=== PATIENT | male | born 1945 | race Caucasian/White ===

== ENCOUNTER 2024-01-08 21:22 | Inpatient (IN) | payer OTHER, SELFPAY ==
[2024-01-08] VITALS (12 sets, daily range): BP systolic 99–134; BP diastolic 48–67; BMI 32.0
[2024-01-08] MEDS: NSS 1000 IV ×3 (18:36→20:09)
[2024-01-08 18:42] LABS: % Basophils 0.1 % (0-2); % Eosinophils 0.7 % (0-6); % Immature Granulocytes 0.4 % (0-0.5); % Lymphocytes 20.8 % (20.5-51.1); % Monocytes 12.9 % (1.7-9.3); % Neutrophils 65.1 % (42.2-75.2); Absolute Eosinophils 0.1 10^3/uL (0-0.7); Absolute Lymphocytes 1.5 10^3/uL (1.2-3.4); Absolute Neutrophils 4.8 10^3/uL (1.4-6.5); Hematocrit 42.1 % (39.0-52.0); Hemoglobin 15.3 g/dL (13.0-18.0); Mean Corp Hgb Conc. 36.3 g/dL (33.0-37.0); Mean Corpuscular Hgb 31.4 pg (27.0-31.0); Mean Corpuscular Volume 86.4 fL (80.0-94.0); Mean Platelet Volume 11.6 fL (7.4-10.4); Nucleated Red Blood Cells % 0 % (-); Platelet Count 232 10^3/uL (130-400); Red Blood Cell Count 4.87 10^6/uL (4.70-6.10); Red Cell Dist. Width 14.3 % (11.5-14.5); White Blood Cell Count 7.4 10^3/uL (4.8-10.8)
[2024-01-08 19:00] LABS: COVID-19 Antigen Positive (Negative)
[2024-01-08 19:22] LABS: Calcium 9.3 mg/dl (8.4-10.2); Carbon Dioxide 7 mmol/L (22-30); Chloride 104 mmol/L (98-107); Estimated Creatinine Clearance 6 ml/min; Glucose 97 mg/dl (70-99); Sodium 133 mmol/L (135-145); eGFR 5.34
--- NOTE | 2024-01-08 19:33 | ED.GENMED ---
History of Present Illness
General
Chief Complaint: Cough
Source: patient and spouse
Exam Limitations: none
Time Seen by Provider: 01/08/24 17:49
Nursing documentation reviewed up to this point in time: agreed with
History of Present Illness
History of Present Illness:
pt adin 78 y/o M with h/o HTN, HLD, cabg
day 6 of covid symptoms
suspected avi wifew was also positive
vaccinated
initially sore throat, maybe mild cough but those symptoms iddn't last
he hasn't beeen eating/drinking and to seems very dehydrated
also some diarrhea, which he had a few episodes of each day, but he took an OTC antidiarrheal med which ehlped
he has not been vomiting
isn't sure why he isn't eating
he denies fever, chest pain, sob
seems generally weak
Past History
Past History
ED Past Medical History: CAD, HTN and Hypercholesterolemia
ED Past Surgical History: Cardiac (cabg)
Social History
Tobacco: Non-smoker
Alcohol: None
Drug: None
Personal:
Living: with family
Review of Systems
Review of Systems
Allergies reviewed?: Yes
All Other Systems: Not applicable
Phy Exam
Physical Exam
Physical Exam:
GENERAL: Alert , in no apparent distress, seems a little off, goofy
EYE: pupils equal and reactive
NECK: Supple
ENT: o/p clr, VERY DRY
CARDIAC: Regular rate and rhythm .
LUNGS: Clear breath sounds bilaterally, no acute respiratory distress, no wheezes/rales/rhonchi
ABDOMEN: Soft, without focal tenderness, no r/g, no cvat, normal bowel sounds
NEUROLOGICAL: Alert and oriented, no focal neuro deficits, moving all exremities
SKIN: Warm and dry, skin intact.
MUSCULOSKELETAL: No edema, well perfused. neg jeana's sign
PSYCH: seems a little off
Course
Orders/Labs/Results
Orders:
Orders
01/08/24 18:14
0.9% Sodium Chloride 1000 ml [Nss] 1,000 ml IV BOLUS
CR Chest - 2 Views Urgent
Comment:
Reason For Exam: dehydration, not eating, covid
01/08/24 18:36
Basic Metabolic Panel Urgent
Comment: BMP NO K
COVID-19 Antigen Urgent
Source: Nasal Swab
Complete Blood Count/With Diff Urgent
01/08/24 19:32
Electrocardiogram (*1) Urgent
Reason for Study: Other
Other Reason for Exam: renal failure
Bladder Scan- Treatment ONCE
EKG- Treatment ONCE
01/08/24 19:46
0.9% Sodium Chloride 1000 ml [Nss] 1,000 ml IV BOLUS
01/08/24 20:07
Comprehensive Metabolic Panel Urgent
Magnesium Urgent
01/08/24 20:09
0.9% Sodium Chloride 1000 ml [Nss] 1,000 ml IV BOLUS
01/08/24 20:31
Renal Only US [US Renal Only W/O Bladder] Routine
Comment:
Reason For Exam: ADINA
01/08/24 20:32
Body Fluid for Eosinophils Routine
Urinalysis Routine
Urine Creatinine Routine
Urine Sodium Routine
01/08/24 20:34
Dextrose 50%-Water [Dextrose 50% Syringe] 25 grams IV NOW STA
Insulin Human Regular [Novolin R] 10 units IV NOW STA
01/08/24 20:45
Sterile Water For Inj [Sterile Water For Injection 1000 ml] 1,000 ml Sodium Bicarbonate 150 meq IV 125 mls/hr
01/08/24 21:03
Admit/Transfer Patient As Directed
Co-Sign Provider:
Level of Care: Inpatient admission
Assign to:: ICU
Physician / Group: Josef
Diagnosis: Acute kidney failure
Reason for Hospitalization: Above
Expected length of stay greater than two midnights?: Yes
ELOS- Estimated Length of Stay in days: 2
I certify the patient meets the requirements for IP care: Yes
01/08/24 21:04
Code Status As Directed
Resuscitation Status: Full Code
01/08/24 21:20
Lactate Level [Lactic Acid] Routine
01/08/24 22:12
Senior Animator Consult Routine
Consulting Provider: Brenda Oakes
Was physician already notified: Yes
NEPHROLOGY CONSULT Routine
Consulting Provider: Virgil Villalobos
Was physician already notified: Yes
Urinalysis Routine
Urine Creatinine Routine
Urine Sodium Routine
Carson Catheter [Catheter- Indwelling] As Directed
Reason for insertion: I&O's Critical Care
Assess insertion reason daily.Remove if no longer applicable: Yes
Sequential Compression Device [Pneumatic Compression Sleeves] As Directed
Type: Knee high
DX Deep Vein Thrombosis Video Routine
01/08/24 23:24
BMP [Basic Metabolic Panel] Routine
01/09/24 Breakfast
Clear Liquid
At Your Request: Full Participation
CBC/With Diff [Complete Blood Count/With Diff] IN AM
CMP [Comprehensive Metabolic Panel] IN AM
Abnormal Lab Results
01/08/24 01/08/24
18:36 20:07
MCH 31.4 H pg
(27.0-31.0)
MPV 11.6 H fL
(7.4-10.4)
Absolute Monos (auto) 1.0 H 10^3/uL
(0.1-0.6)
Monocytes % 12.9 H %
(1.7-9.3)
Sodium 133 L mmol/L 132 L mmol/L
(135-145) (135-145)
Potassium 6.6 H* mmol/L
(3.5-5.1)
Carbon Dioxide 7 L* mmol/L 6 L* mmol/L
(22-30) (22-30)
BUN 131 H* mg/dl 128 H* mg/dl
(9-20) (9-20)
Creatinine 9.3 H* mg/dL 9.0 H* mg/dL
(0.7-1.3) (0.7-1.3)
Magnesium 1.4 L mg/dl
(1.6-2.3)
AST 73 H U/L
(17-59)
SARS-CoV-2 Antigen Positive A
(Negative)
01/08/24 18:36
01/08/24 20:07
Vital Signs
Initial and Last Documented VS:
Initial Vital Signs
Temp Pulse Resp BP Pulse Ox
97.8 F 77 22 99/48 96
01/08/24 17:16 01/08/24 17:16 01/08/24 17:16 01/08/24 17:16 01/08/24 17:16
Last Documented Vital Signs
Temp Pulse Resp BP Pulse Ox
99.9 F 86 27 102/50 94
01/08/24 23:00 01/08/24 22:04 01/08/24 22:04 01/08/24 21:00 01/08/24 22:42
MDM/Problems Addressed
Differential Diagnosis Includes:
dehydration, covid, pneumonia, ARF
MDM/Problems Addressed:
78 y/o M with cad
covid + 5 days
home test +
lost his appetite and can't get him to really eat or drink
borderline low bp
VERY DRY MOUTH
bladder scan 12 ml
no focal findings on exam otherwise
no resp distress
covid+
ARF seems prerenal, bum 131, cr 9
k 6.6
no ekg changes
d/w renal who was sin to see pt and ordered meds, recommended 3L NS
icu
*Critical Care Note
Total Time (30-74mins, 75-104mins- exclusive of procedures): Not Applicable
ED Attending Note
-
Portions of this chart may have been created with voice recognition software.� Occasional wrong word or��sound alike� substitutions may have occurred due to the inherent limitations of voice recognition software.
Discharge Plan
Departure
Patient Disposition: Admit
Date of Disposition: 01/08/24
Time of Disposition: 20:24
Admit to: IMU
Presentation/result/management discussed w/ accepting MD/DO: Hospitalist
Condition: Fair
Covid-19: Not Applicable
Discharge Problem:
Acute renal failure
Interventions
Interventions:
*General Assessment Last Done: 01/08/24 18:41
*Neglect/Abuse Screening Last Done: 01/08/24 17:19
ED- Fall Risk Assessment Last Done: 01/08/24 21:49
*Nursing Disposition Last Done: 01/08/24 21:49
ED- Pulmonary Assessment Last Done: 01/08/24 18:30
Discharge Date and Time
Discharge Date/Time: 01/08/24 21:51
[2024-01-08 19:43] LABS: Blood Urea Nitrogen 131 mg/dl (9-20)
--- NOTE | 2024-01-08 20:22 | W.CON.NEPH ---
Consultation
-
Date/Time Consultation Requested: January 08, 2024 8 PM
Date/Time Consultation Performed: January 08, 2024 8 PM
Requesting Provider: Dr. Bahena
Performing Provider: On
Reason for Consultation: ADINA
Medical History
-
Chief Complaint: Weakness
History of Present Illness:
This is a 78-year-old gentleman who has coronary disease with bypass grafting on antiplatelet therapy, he is followed by cardiology.. He has hypertension which is typically controlled on a multidrug regimen as well as reflux controlled with
Prilosec therapy. Recently his close family had contracted COVID. First his [id number] and then his and then him. For the last 6 days time he has lost his appetite his intake has been essentially nil. This includes all solids and liquids.
However, he did still try to take his medications including his lisinopril. He reports that his urine output also decreased. He did develop diarrhea with watery. He has been mostly bedbound has been slightly orthostatic. He is very weak. He
denies any other symptoms such as pain or nausea or vomiting or fevers. He has no shortness of breath.
Past Medical History
Coronary disease with bypass grafting, hypertension, hyperlipidemia, CKD 3A, tooth extraction, tonsillectomy
Social History
Tobacco: Former Smoker
Alcohol: Occasional
Family History
Family History: CAD
Allergies / Home Medications
Allergy/AdvReac Type Severity Reaction Status Date / Time
No Known Allergies Allergy Unverified 01/08/24 17:23
�Medication �Instructions �Recorded �Confirmed �Type
amlodipine 5 mg tablet 5 mg PO DAILY 01/08/24 01/08/24 History
aspirin 81 mg chewable tablet 81 mg PO DAILY 01/08/24 01/08/24 History
atorvastatin 40 mg tablet 40 mg PO DAILY 01/08/24 01/08/24 History
lisinopril 10 mg tablet 10 mg PO DAILY 01/08/24 01/08/24 History
metoprolol succinate 50 mg 50 mg PO BID 01/08/24 01/08/24 History
tablet,extended release 24 hr
omeprazole 20 mg tablet,delayed 20 mg PO DAILY 01/08/24 01/08/24 History
release
Review of Systems
-
Loss of appetite, fatigue, orthostasis, diarrhea
All other systems: Negative unless noted
Physical Exam
Vital Signs
Vital Signs
Temp Pulse Resp BP Pulse Ox
97.8 F 72 22 112/49 97
01/08/24 17:16 01/08/24 20:00 01/08/24 20:00 01/08/24 20:00 01/08/24 20:00
Lab Results
WBC 7.4 10^3/uL (4.8-10.8) 01/08/24 18:36
RBC 4.87 10^6/uL (4.70-6.10) 01/08/24 18:36
Hgb 15.3 g/dL (13.0-18.0) 01/08/24 18:36
Hct 42.1 % (39.0-52.0) 01/08/24 18:36
Plt Count 232 10^3/uL (130-400) 01/08/24 18:36
eGFR Cancelled 01/08/24 19:34
Physical Exam
Patient is awake alert oriented and in no distress. Mood and affect were pleasant, insight and judgment were good. Pupils are equal round and reactive to light, extraocular movements are intact, sclera were anicteric. Hearing was normal, ears and
nose are intact. Oropharynx was dry. Neck was supple with trachea midline and no thyromegaly. Heart was regular rate and rhythm without rubs. Lower extremities without edema. Lungs were clear to auscultation bilaterally and with normal excursion.
Abdomen was soft, nontender, with normal active bowel sounds, and no hepatosplenomegaly. Skin was without rash and with normal turgor.
Data Reviewed
-
Radiology: Image Personally Visualized and interpreted (Chest x-ray on January 08, 2024 by my reading shows no acute disease)
Medical Tests (Nuc Med, Echo etc): Image Personally Visualized and interpreted (EKG on January 08, 2024 by read shows normal sinus rhythm inferior Q) and Report Reviewed by me (Echocardiogram on November 19, 2021 shows ejection fraction 54%)
Labs: Labs Reviewed by me (WBC 7.4, hemoglobin 15.3, platelet 232, sodium 133, chloride 104, bicarbonate 7, BUN 131, creatinine 1.3, calcium 9.3; COVID-19 positive)
Old Records: Reviewed (On April 01, 2023 sodium 139, potassium 3.9, chloride 103, bicarb 21, BUN 20, creatinine 1.47, calcium 7.2, AST 44, ALT 28; on February 19, 2022 urinalysis with 2+ protein)
Assessment/Plan
-
Assessment
Acute kidney injury
Azotemia
Metabolic acidosis
Diarrhea
Hypertension, relative hypotension
Coronary artery disease/CABG
Reflux
CKD 3A, 1.47
Plan
Await repeat potassium, treat medically
3 L saline bolus
IV fluids with bicarbonate
Check urine studies
Postvoid residual 12 cc
Check renal ultrasound
Holding all outpatient medications
Discussed with patient and . There is certainly a risk for requiring dialysis they understand.
Critical care time spent 42 minutes
[2024-01-08 20:34] LABS: ALT (SGPT) 47 U/L (0-50); AST (SGOT) 73 U/L (17-59); Alkaline Phosphatase 42 U/L (38-126); Calcium 8.6 mg/dl (8.4-10.2); Carbon Dioxide 6 mmol/L (22-30); Chloride 107 mmol/L (98-107); Estimated Creatinine Clearance 6 ml/min; Glucose 91 mg/dl (70-99); Magnesium 1.4 mg/dl (1.6-2.3); Potassium 6.6 mmol/L (3.5-5.1); Sodium 132 mmol/L (135-145); Total Bilirubin 0.7 mg/dl (0.2-1.3); Total Protein 6.9 g/dl (6.3-8.2); eGFR 5.55
[2024-01-08] MEDS: NOVOLIN R 10 UNITS IV (20:41)
[2024-01-08 20:42] LABS: Blood Urea Nitrogen 128 mg/dl (9-20)
[2024-01-08] MEDS: DEXTROSE 50% SYRINGE 25 GRAMS IV (20:43)
--- NOTE | 2024-01-08 21:08 | HPS.HSE ---
Family Physician
-
Family Physician: Triston Kimball
Chief Complaint
-
Severe fatigue, low urine output
History of Present Illness
Patient is a 78 years old male with history of coronary artery disease, hypertension, dyslipidemia, chronic kidney disease stage IIIa with baseline creatinine 1.47 who contracted COVID about 5 days ago from family members. Patient complains with
severe fatigue and weakness over the last few days, low oral intake and frequent loose stools. Patient has been taking his medications including including antihypertensives with lisinopril. He noticed decreased urine output. Over the last few
days he mostly been bedbound due to dizziness possibly orthostasis.
Patient presents to the emergency room found to be hypotensive
Additional workup revealed severe acute kidney injury with hyperkalemia
Medical History
Past Medical History
Past Medical History: Reports CAD, HTN and Other (CKD stage III AA)
Past Surgical History: Reports None
Social History
Tobacco: Non-smoker
Alcohol: None
Personal:
Living: With Family
Employment: Retired
Family History
Family History: Not pertinent
Allergies / Home Medications
Allergies reflects when Allergies were last updated in [facility].
Home Medications with original date entered in [facility]
Allergy/Medication List:
Allergies
Allergy/AdvReac Type Severity Reaction Status Date / Time
No Known Allergies Allergy Unverified 01/08/24 17:23
Home Medications
amlodipine 5 mg tablet 5 mg PO DAILY 01/08/24
aspirin 81 mg chewable tablet 81 mg PO DAILY 01/08/24
atorvastatin 40 mg tablet 40 mg PO DAILY 01/08/24
lisinopril 10 mg tablet 10 mg PO DAILY 01/08/24
metoprolol succinate 50 mg tablet,extended release 24 hr 50 mg PO BID 01/08/24
omeprazole 20 mg tablet,delayed release 20 mg PO DAILY 01/08/24
Review of Systems
-
A 12 point ROS was completed and negative except as noted: Yes
Physical Exam
Vital Signs
Vital Signs
Temp Pulse Resp BP Pulse Ox
97.8 F 72 22 112/49 97
01/08/24 17:16 01/08/24 20:00 01/08/24 20:00 01/08/24 20:00 01/08/24 20:00
Physical Exam
General: Well Developed, Well Nourished and No Apparent Distress
HEENT: NormoCephalic, Moist mucous membranes and Atraumatic
Respiratory: Clear
Cardiac: S1/S2 and Regular Rhythm; No Murmur or Rub
GI: Soft, Non Tender, Non Distended and Normal Bowel Sounds; No Organomegaly
Rectal: Deferred by Provider
Musculoskeletal: No Clubbing, No Cyanosis and No Edema
Skin: No Rash
Neuro: Nonfocal/grossly intact
Laboratory Results
-
01/08/24 18:36
Laboratory Results
Lactic Acid Cancelled 01/08/24 20:31
Total Bilirubin 0.7 mg/dl (0.2-1.3) 01/08/24 20:07
AST 73 U/L (17-59) H 01/08/24 20:07
ALT 47 U/L (0-50) 01/08/24 20:07
Alkaline Phosphatase 42 U/L (38-126) 01/08/24 20:07
Impression/Plan
-
IMPRESSION:
Presentation with severe fatigue and weakness.
Acute kidney injury
Severe azotemia
Increased anion gap metabolic acidosis.
Hypotension on presentation.
Acute COVID-19 infection
Conditions prior to admission:
CAD.
History of CABG
Dyslipidemia.
Hypertension.
CKD stage IIIa with baseline creatinine 1.4.
GERD.
PLAN:
Critically ill
Admit to ICU.
Acute kidney injury on CKD stage IIIa with baseline creatinine 1.4.
Decreased urine output.
Postvoid residual in ED 12 cc.
Severe azotemia.
Metabolic acidosis likely secondary to GI losses as well as ADINA.
Transient hypotension responding to IV fluids
Severe hyperkalemia with no EKG changes treated with insulin and bicarbonate.
Continue aggressive IV fluid resuscitation with bicarbonate.
Hold antihypertensives including TALA inhibitor
Carson catheter.
Urine studies
Renal sonogram.
Follow BMP closely.
Nephrology consultation appreciated.
Acute COVID-19 infection
Stable respiratory status with almost no respiratory complaints.
Chest x-ray clear lung davey.
Vaccinated.
Continue close monitoring.
Continue isolation
Coronary artery disease status post CABG
Preadmission regimen including aspirin, metoprolol, statin.
Hypertension on amlodipine and lisinopril.
GERD
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
[2024-01-08] MEDS: SODIUM BICARBONATE 1150 MEQ IV (21:21)
[2024-01-08 21:34] LABS: Glucose - Point of Care 121 mg/dl (70-99)
[2024-01-08 22:02] LABS: Lactic Acid 1.3 mmol/L (0.7-2.0)
--- NOTE | 2024-01-08 22:45 | PTCARENOTE ---
Pt arrived from ED approx 2200.
Placed on novel respiratory precautions, settled into ICU room.
No neurological deficits noted.
Normotensive, normothermic, NSR w/o ectopy.
Lungs diminished/coarse bilaterally, RA sp02 94-96%.
Anuric, failed alexis placement w/ coude.
Trending BMP, I/O, cardiac monitoring due to elevated K.
Family updated bedside at length, potential plans for HD.
[2024-01-08] MEDS: MAGNESIUM SULFATE 50 IV (23:31)
[2024-01-08 23:46] LABS: INR 1.08; PT 13.9 Sec (11.4-14.6)
[2024-01-08 23:47] LABS: APTT 35.6 Sec (23.4-35.0)
[2024-01-08 23:53] LABS: Blood Urea Nitrogen 115 mg/dl (9-20); Calcium 7.9 mg/dl (8.4-10.2); Carbon Dioxide 8 mmol/L (22-30); Chloride 112 mmol/L (98-107); Estimated Creatinine Clearance 7 ml/min; Glucose 73 mg/dl (70-99); Potassium 5.3 mmol/L (3.5-5.1); Sodium 135 mmol/L (135-145); eGFR 6.59
[2024-01-09] VITALS (32 sets, daily range): BP systolic 96–140; BP diastolic 49–111; PULSE 88–90; O2SAT 94–95; BMI 37.8
--- NOTE | 2024-01-09 00:53 | PTCARENOTE ---
No change from prior assessment.
Labs improving will cont. to trend, troponin and CK added on. VBG added to morning labs.
Still anuric.
mag rplt.
[2024-01-09 02:03] LABS: Creatine Phosphokinase 433 U/L (55-170)
[2024-01-09 02:04] LABS: Troponin I < 0.012 ng/ml
[2024-01-09 03:24] LABS: Urine Albumin Negative (Neg - Trace); Urine Bilirubin Negative (Negative); Urine Character Clear (Clear); Urine Color Yellow; Urine Glucose Negative (Negative); Urine Ketone Negative (Negative); Urine Leukocyte Negative (Negative); Urine Nitrite Negative (Negative); Urine Occult Blood 1+ (Negative); Urine Specific Gravity 1.015 (<1.030); Urine Urobilinogen Negative (Neg - 1+)
[2024-01-09 03:45] LABS: Urine Bacteria Moderate (Negative); Urine Red Blood Cell 50-60 /HPF (0-2); Urine Sodium 64 mmol/L (30-90)
[2024-01-09 03:46] LABS: Urine White Cell 40-50 /HPF (0-5)
[2024-01-09 03:48] LABS: Urine Amorphous Seen; Urine Urothelial Cell 0-2 /LPF (FEW)
--- NOTE | 2024-01-09 04:55 | PTCARENOTE ---
no deviation in assessment from prior.
remains on bicard gtt.
now urinating.
[2024-01-09 05:10] LABS: Body Fluid for Eosinophils No Eosinophils seen
[2024-01-09 05:21] LABS: Venous Blood Gas HCO3 10.9 mmol/L (22-27); Venous Blood Gas O2 Sat % 99.1 %; Venous Blood Gas pCO2 26 mmHg (35-48); Venous Blood Gas pH 7.23 (7.32-7.43); Venous Blood Gas pO2 135 mmHg (30-50)
[2024-01-09 05:28] LABS: % Basophils 0.5 % (0-2); % Immature Granulocytes 0.7 % (0-0.5); % Lymphocytes 27.7 % (20.5-51.1); % Neutrophils 58.1 % (42.2-75.2); Absolute Eosinophils 0.1 10^3/uL (0-0.7); Absolute Lymphocytes 1.6 10^3/uL (1.2-3.4); Absolute Monocytes 0.7 10^3/uL (0.1-0.6); Absolute Neutrophils 3.4 10^3/uL (1.4-6.5); Hemoglobin 13.2 g/dL (13.0-18.0); Mean Corp Hgb Conc. 35.7 g/dL (33.0-37.0); Mean Corpuscular Hgb 31.6 pg (27.0-31.0); Mean Corpuscular Volume 88.5 fL (80.0-94.0); Mean Platelet Volume 11.7 fL (7.4-10.4); Nucleated Red Blood Cells % 0 % (-); Platelet Count 168 10^3/uL (130-400); Red Blood Cell Count 4.18 10^6/uL (4.70-6.10); White Blood Cell Count 5.9 10^3/uL (4.8-10.8)
[2024-01-09] MEDS: SODIUM BICARBONATE 1150 MEQ IV ×2 (05:35→16:21)
[2024-01-09 06:03] LABS: ALT (SGPT) 39 U/L (0-50); AST (SGOT) 63 U/L (17-59); Albumin 3.6 g/dl (3.5-5.0); Alkaline Phosphatase 52 U/L (38-126); Blood Urea Nitrogen 110 mg/dl (9-20); Calcium 7.9 mg/dl (8.4-10.2); Carbon Dioxide 7 mmol/L (22-30); Chloride 108 mmol/L (98-107); Creatine Phosphokinase 558 U/L (55-170); Estimated Creatinine Clearance 9 ml/min; Glucose 72 mg/dl (70-99); Magnesium 1.9 mg/dl (1.6-2.3); Phosphorus 6.2 mg/dl (2.5-4.5); Potassium 4.9 mmol/L (3.5-5.1); Sodium 133 mmol/L (135-145); Total Bilirubin 0.6 mg/dl (0.2-1.3); Total Protein 6.2 g/dl (6.3-8.2); eGFR 8.05
--- NOTE | 2024-01-09 07:11 | CON.INTV ---
Consultation
Consultation Request
Date/Time Consultation Requested: 01/09/24
Date/Time Consultation Performed: 01/09/24
Performing Provider: Violette
Reason for Consultation: Critical Care
Medical History
-
History of Present Illness:
Patient is a 78 years old male with history of coronary artery disease, hypertension, dyslipidemia, chronic kidney disease stage IIIa with baseline creatinine 1.47 who contracted COVID about 5 days ago from family members. Patient complains with
severe fatigue and weakness over the last few days, low oral intake and frequent loose stools. He noticed decreased urine output. Over the last few days he mostly been bedbound due to dizziness possibly orthostasis. Patient presents to the
emergency room found to be hypotensive, with severe acute kidney injury (peak creat notably 9.3) with hyperkalemia (6.6), severe metabolic acidosis (bicarb 7).
Admitted to ICU for severe metabolic derangements.
Past Medical History
Past Medical History: Other (see below)
Social History
Tobacco: Non-smoker
Alcohol: None
Drug: None
Family History
Family History: Reviewed & Not Pertinent
Allergies / Home Medications
Allergies
Allergy/AdvReac Type Severity Reaction Status Date / Time
No Known Allergies Allergy Unverified 01/08/24 17:23
Home Medications
�Medication �Instructions �Recorded �Confirmed �Last Taken �Type
amlodipine 5 mg tablet 5 mg PO DAILY 01/08/24 01/08/24 Unknown History
aspirin 81 mg chewable tablet 81 mg PO DAILY 01/08/24 01/08/24 Unknown History
atorvastatin 40 mg tablet 40 mg PO DAILY 01/08/24 01/08/24 Unknown History
lisinopril 10 mg tablet 10 mg PO DAILY 01/08/24 01/08/24 Unknown History
metoprolol succinate 50 mg 50 mg PO BID 01/08/24 01/08/24 Unknown History
tablet,extended release 24 hr
omeprazole 20 mg tablet,delayed 20 mg PO DAILY 07/13/24 07/13/24 Unknown History
release
Review of Systems
-
History Source: Patient
All other systems: Negative unless noted
Vitals / Labs / Diagnostic Testing
Vital Signs
Temp Pulse Resp BP Pulse Ox
98.0 F 81 22 137/55 95
01/09/24 03:00 01/09/24 05:15 01/09/24 05:15 01/09/24 05:15 01/09/24 05:15
Lab Data
01/09/24 05:07
01/09/24 05:07
Laboratory Results
01/08/24
23:24
PT 13.9
INR 1.08
APTT 35.6 H
Diagnostic Testing:
Physical Exam
-
HEENT: Normocephalic, Anicteric and Moist Mucous Membranes
Cardiovascular: S1/S2 and Regular Rhythm
Respiratory: Clear and Non-Labored Respirations
GI: Soft, Non Distended and Non Tender
Neurology: Awake, Alert, Oriented, AO x 3 and No Motor Deficits
Skin: Warm, Dry and Good Color
General: Comfortable and Other (NAD)
Assessment
-
Patient is a 78 years old male with history of coronary artery disease, hypertension, dyslipidemia, chronic kidney disease stage IIIa with baseline creatinine 1.47 who contracted COVID about 5 days ago from family members. Patient complains with
severe fatigue and weakness over the last few days, low oral intake, frequent loose stools and decreased urine output. Over the last few days he mostly been bedbound due to dizziness possibly orthostasis. Patient presents to the emergency room
found to be hypotensive, with severe acute kidney injury (peak creat notably 9.3) with hyperkalemia (6.6), severe metabolic acidosis (bicarb 7). Admitted to ICU for severe metabolic derangements.
ADINA
Hyperkalemia
Severe met acidosis
Acute dehydration
Acute COVID illness
Weakness
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
Mixed hyperlipidemia
History of coronary artery bypass surgery 2005
Essential (primary) hypertension
Tonsillectomy
Plan
No current signs of metabolic encephalopathy or MS changes/following commands
Denies pain at this time.
Pain/sedation: PRN
RASS goals: 0
Hemodynamically stable, not requiring pressors.
Cardiac history reviewed--HTN, CAD
Prior ECHO reviewed indicating normal function
Resume home meds
Monitor on telemetry
Oxygen needs: stable on RA
Prior history of lung disease: none, but suspect BIBIANA
Supplemental O2 as indicated to maintain sats > 89%
CXR/CT reviewed indicating NAD
Diet resumed
Aspiration precautions, HOB > 30 degrees
Speech therapy eval can be considered if at elevated risk
Resume home PPI
ADINA present, renal following
Continue IVFs, repeat labs q12
Likely from prerenal/dehydration
CKD history
Void trials
Follow urine output, critical I/Os
Replete electrolytes as needed, consider bicarb repletion
No signs/symptoms suspicious for infectious etiology at this time
Observe off antibiotics for now
Follow fever trend, WBC count
CBC stable, no signs of bleeding or coagulopathy.
DVT prophylaxis as assessed based on risk, including mechanical SCDs
Can transfuse if indicated for Hb <7, plt < 10
INR WNL
PT/OT evals, OOB
No prior h/o diabetes or thyroid disease
Monitor accuchecks PRN/SS coverage if needed
Can transfer out of ICU when stable, we will sign off upon transfer
Discussed CDC recs for COVID management as OP
Diagnostic Data
Chest X-Ray: 01/08/24- No acute cardiopulmonary process.
CT Scan:
Echo: 11/19/21- Normal left ventricular size and systolic function. No regional wall motion abnormalities are seen. LV ejection fraction is 54% by Arana's biplane method of discs. Mild septal hypertrophy. Normal diastolic function.
PFT's:
Reports and relevant images were personally reviewed.
-----
Critical Care time 60 mins -- The patient is admitted for acute critical illness for the treatment of vital organ failure and/or prevention of further life-threatening conditions. Total care includes time spent in review of history, physical exam,
medications, hemodynamic/ventilator parameters, laboratory data, imaging and discussion with house staff, pharmacy, respiratory therapy, immigration law specialist, and nursing.
[2024-01-09 07:42] LABS: Erythrocyte Sed Rate 26 mm/hour (0-20)
--- NOTE | 2024-01-09 08:00 | W.PN.NEPH.PH ---
Today's Communication / Plan
-
Continue IV fluids
Assessment/Plan
-
Assessment
Acute kidney injury
Azotemia
Metabolic acidosis
Diarrhea
Hypertension, relative hypotension
Coronary artery disease/CABG
Reflux
CKD 3A, 1.47
Plan
Continue IV fluids with bicarbonate
Follow urine output
Await renal ultrasound
Holding all outpatient medications
Acidosis is likely on the basis of acute kidney injury and diarrhea
Critical care time spent 31 minutes
-
-
Date of Service: January 09, 2024
CC / HPI / ROS
-
Chief Complaint:
ADINA
History of Present Illness:
ADINA/creatinine down to 6.6
Significant metabolic acidosis persists, 7
Hyponatremia stable 133
Urine output slowly improving
BP stable
Remains in COVID isolation
Critically ill in ICU
Review of Systems:
Appetite slowly improving
No further diarrhea
No chest pain shortness of breath
Labs
-
Labs:
WBC 5.9 10^3/uL (4.8-10.8) 01/09/24 05:07
RBC 4.18 10^6/uL (4.70-6.10) L 01/09/24 05:07
Hgb 13.2 g/dL (13.0-18.0) 01/09/24 05:07
Hct 37.0 % (39.0-52.0) L 01/09/24 05:07
Plt Count 168 10^3/uL (130-400) D 01/09/24 05:07
Sodium 133 mmol/L (135-145) L 01/09/24 05:07
Potassium 4.9 mmol/L (3.5-5.1) 01/09/24 05:07
Chloride 108 mmol/L (98-107) H 01/09/24 05:07
Carbon Dioxide 7 mmol/L (22-30) L* 01/09/24 05:07
BUN 110 mg/dl (9-20) H* 01/09/24 05:07
Creatinine 6.6 mg/dL (0.7-1.3) H* 01/09/24 05:07
eGFR 8.05 01/09/24 05:07
Glucose 72 mg/dl (70-99) 01/09/24 05:07
Calcium 7.9 mg/dl (8.4-10.2) L 01/09/24 05:07
Phosphorus 6.2 mg/dl (2.5-4.5) H 01/09/24 05:07
Albumin 3.6 g/dl (3.5-5.0) 01/09/24 05:07
Physical Exam
-
Vital Signs:
Vital Signs
Temp Pulse Resp BP Pulse Ox
98.6 F 81 22 137/55 95
01/09/24 07:27 01/09/24 05:15 01/09/24 05:15 01/09/24 05:15 01/09/24 05:15
Cardiovascular:: Regular rate and rhythm
Respiratory:: Bilateral: Coarse
Lung Excursion:: Normal
Abdomen:: Nontender and Soft
Bowel Sounds:: Normal
Extremity Edema:: None: Bilateral:
--- NOTE | 2024-01-09 08:08 | W.PN.HOSP.TC ---
Today's Communication/Plan
-
transfer to tele
PT/OT
follow labs
Assessment / Plan
Assessment / Plan
pt is a 78 year old male
Acute kidney injury ( with metabolic acidosis) on CKD stage IIIa with baseline creatinine 1.4--likely from poor oral intake, dehydration, diarrhea all from Covid 19 infection--apprec renal--cont IVF with bicarb--numbers improving but not at
baseline--transfer to tele--Severe hyperkalemia with no EKG changes treated with insulin and bicarbonate--Hold antihypertensives including TALA inhibitor--Carson catheter--apprec renal--renal US pending
Acute COVID-19 infection--Stable respiratory status with almost no respiratory complaints--CXR neg--not hypoxic--NO NEED for COVID therapies--Vaccinated-- isolation as per protocol
Coronary artery disease status post CABG--Preadmission regimen including aspirin, metoprolol, statin.
Essential Hypertension-- holding amlodipine and lisinopril.
GERD--cont PPO
code status -- FULL CODE
Anticipated Discharge: > 48 hours
Subjective/Interval History
-
Date of Service: January 09, 2024
pt sitting in the chair--started making urine
Objective Data
-
Labs:
Laboratory Results
01/08/24 01/08/24 01/09/24
20:07 23:24 05:07
WBC 5.9
Hgb 13.2
Hct 37.0 L
Plt Count 168 D
PT 13.9
INR 1.08
APTT 35.6 H
Sodium 132 L 135 133 L
Potassium 6.6 H* 5.3 H 4.9
Chloride 107 112 H 108 H
Carbon Dioxide 6 L* 8 L* 7 L*
BUN 128 H* 115 H* 110 H*
Creatinine 9.0 H* 7.8 H* 6.6 H*
Glucose 91 73 72
Calcium 8.6 7.9 L 7.9 L
Total Bilirubin 0.7 0.6
AST 73 H 63 H
ALT 47 39
Alkaline Phosphatase 42 52
Vital Signs:
max temp for 24 hours
01/08/24
23:00
Temp 99.9 F
Vital Signs
Temp Pulse Resp BP Pulse Ox
98.6 F 81 22 137/55 95
01/09/24 07:27 01/09/24 05:15 01/09/24 05:15 01/09/24 05:15 01/09/24 05:15
I&O
01/08/24 01/09/24 01/10/24
06:59 06:59 06:59
Intake Total 3825 / 3825
Output Total 600 / 600
Balance 3225 / 3225
Review of Systems
-
All other systems: Reviewed and negative
Physical Exam
-
General: Well Developed, Well Nourished and No Apparent Distress
HEENT: Normocephalic and Atraumatic
Respiratory: Clear to Auscultation; Negative Wheezes or Rhonchi
Cardiac: Regular Rhythm and S1/S2; Negative Murmur
GI: Soft, Nontender, Nondistended and Normal Bowel Sounds
Musculoskeletal: No Clubbing, No Cyanosis and No Edema
Neuro: Awake and Alert
Psych: Calm
--- NOTE | 2024-01-09 12:59 | PTCARENOTE ---
Pt transferred to acute care room 2127. Care assumed by GEORGI Magaña.
--- NOTE | 2024-01-09 22:44 | PTCARENOTE ---
Hr increased to 150's sinus tach when ambulating. pt asymptomatic. HR back to roxanne in 80's when in bed. [employer] notified. no new orders. will monitor.
[2024-01-10 03:26] VITALS: BP 130/63
[2024-01-10] MEDS: SODIUM BICARBONATE 1150 MEQ IV (05:18)
[2024-01-10 05:36] VITALS: BMI 35.7
[2024-01-10 07:15] VITALS: BP 112/68
[2024-01-10 07:32] LABS: Hematocrit 35.6 % (39.0-52.0); Hemoglobin 13.2 g/dL (13.0-18.0); Mean Corp Hgb Conc. 37.1 g/dL (33.0-37.0); Mean Corpuscular Volume 83.6 fL (80.0-94.0); Mean Platelet Volume 10.9 fL (7.4-10.4); Platelet Count 181 10^3/uL (130-400); Red Blood Cell Count 4.26 10^6/uL (4.70-6.10); Red Cell Dist. Width 13.4 % (11.5-14.5); White Blood Cell Count 4.1 10^3/uL (4.8-10.8)
[2024-01-10 08:10] LABS: ALT (SGPT) 40 U/L (0-50); AST (SGOT) 78 U/L (17-59); Albumin 3.7 g/dl (3.5-5.0); Alkaline Phosphatase 56 U/L (38-126); Blood Urea Nitrogen 93 mg/dl (9-20); Calcium 8.3 mg/dl (8.4-10.2); Carbon Dioxide 22 mmol/L (22-30); Chloride 105 mmol/L (98-107); Estimated Creatinine Clearance 20 ml/min; Glucose 91 mg/dl (70-99); Magnesium 1.4 mg/dl (1.6-2.3); Potassium 4.6 mmol/L (3.5-5.1); Sodium 139 mmol/L (135-145); Total Bilirubin 0.8 mg/dl (0.2-1.3); Total Protein 6.3 g/dl (6.3-8.2); eGFR 20.74
[2024-01-10] MEDS: MAGNESIUM SULFATE 50 IV (09:42)
[2024-01-10] MEDS: LOPRESSOR 25 MG PO ×2 (09:52→19:26)
[2024-01-10] MEDS: LOPRESSOR 5 MG IV (10:02)
[2024-01-10 11:10] VITALS: BP 101/53
--- NOTE | 2024-01-10 11:39 | W.PN.HOSP.TC ---
Addendum entered and electronically signed by Jesus Herrera MD 01/10/24 11:45:
Hypomagnesemia
Replete and monitor
Original Note:
Today's Communication/Plan
-
Trend creatinine
Restart Lopressor
Monitor blood pressure
Nephrology recommendation
Assessment / Plan
Assessment / Plan
pt is a 78 year old male
Acute kidney injury ( with metabolic acidosis) on CKD stage IIIa with baseline creatinine 1.4--likely from poor oral intake, dehydration, diarrhea all from Covid 19 infection--apprec renal--cont IVF with bicarb--numbers improving but not at
baseline--Carson catheter--apprec renal--renal US negative for hydro. Creatinine improving to 3 today.
Severe hyperkalemia with no EKG changes treated with insulin and bicarbonate--Hold TALA inhibitor. Resolved.
Tachycardia likely sinus. Restart Lopressor at a lower dose and uptitrate as blood pressure can tolerate it to home dose
Acute COVID-19 infection--Stable respiratory status with almost no respiratory complaints--CXR neg--not hypoxic--Hold off for COVID therapies--Vaccinated-- isolation as per protocol.
Coronary artery disease status post CABG--RESTART aspirin, metoprolol, statin.
Essential Hypertension-- holding amlodipine and lisinopril.
GERD--cont PPO
code status -- FULL CODE
PT/OT Home health on discharge
Anticipated Discharge: 24 - 48 hours
Subjective/Interval History
-
Date of Service: January 10, 2024
states feeling better
tolerating diet
was tachycardiac earlier today
Objective Data
-
Labs:
Laboratory Results
01/10/24 01/10/24
07:18 07:19
WBC 4.1 L
Hgb 13.2
Hct 35.6 L
Plt Count 181
Sodium 139
Potassium 4.6
Chloride 105
Carbon Dioxide 22
BUN 93 H
Creatinine 3.0 H
Glucose 91
Calcium 8.3 L
Total Bilirubin 0.8
AST 78 H
ALT 40
Alkaline Phosphatase 56
Vital Signs:
Vital Signs
Temp Pulse Resp BP Pulse Ox
98.7 F 180 18 103/58 100
01/10/24 03:26 01/10/24 10:02 01/10/24 07:15 01/10/24 10:02 01/10/24 07:15
I&O
01/09/24 01/10/24 01/11/24
06:59 06:59 06:59
Intake Total 3825 / 3825 1180 / 1180
Output Total 600 / 600 650 / 650
Balance 3225 / 3225 530 / 530
Physical Exam
-
General: Well Developed, Well Nourished and No Apparent Distress
HEENT: Normocephalic and Atraumatic
Respiratory: Clear to Auscultation; Negative Wheezes or Rhonchi
Cardiac: Regular Rhythm and S1/S2; Negative Murmur
GI: Soft, Nontender, Nondistended and Normal Bowel Sounds
Musculoskeletal: No Clubbing, No Cyanosis and No Edema
Neuro: Awake and Alert
Psych: Calm
Data Reviewed
-
Total Time Spent with Patient (in minutes): 55
--- NOTE | 2024-01-10 11:46 | W.PN.NEPH.PH ---
Today's Communication / Plan
-
- change to LR
Assessment/Plan
-
Assessment
Acute kidney injury
Azotemia
Metabolic acidosis
Diarrhea
Hypertension, relative hypotension
Coronary artery disease/CABG
Reflux
CKD 3A, 1.47
Plan
Change fluids from bicarb to LR
Follow urine output, not accurate currently
KUS with a L renal cyst but otherwise benign
Holding all outpatient medications
acidosis significantly improved with bicarb -- likely from intake and diarrhea
Mg low -- please replete
-
-
Date of Service: January 10, 2024
CC / HPI / ROS
-
Chief Complaint:
ADINA
History of Present Illness:
ADINA/creatinine down to 3
Significant metabolic acidosis improved with bicarb gtt
Hyponatremia normalized to 139 with fluids
Urine output slowly improving
BP stable
COVID +
Review of Systems:
Appetite slowly improving
No further diarrhea
No chest pain shortness of breath
Labs
-
Labs:
WBC 4.1 10^3/uL (4.8-10.8) L 01/10/24 07:18
RBC 4.26 10^6/uL (4.70-6.10) L 01/10/24 07:18
Hgb 13.2 g/dL (13.0-18.0) 01/10/24 07:18
Hct 35.6 % (39.0-52.0) L 01/10/24 07:18
Plt Count 181 10^3/uL (130-400) 01/10/24 07:18
Sodium 139 mmol/L (135-145) 01/10/24 07:19
Potassium 4.6 mmol/L (3.5-5.1) 01/10/24 07:19
Chloride 105 mmol/L (98-107) 01/10/24 07:19
Carbon Dioxide 22 mmol/L (22-30) 01/10/24 07:19
BUN 93 mg/dl (9-20) H 01/10/24 07:19
Creatinine 3.0 mg/dL (0.7-1.3) H 01/10/24 07:19
eGFR 20.74 01/10/24 07:19
Glucose 91 mg/dl (70-99) 01/10/24 07:19
Calcium 8.3 mg/dl (8.4-10.2) L 01/10/24 07:19
Phosphorus 6.2 mg/dl (2.5-4.5) H 01/09/24 05:07
Albumin 3.7 g/dl (3.5-5.0) 01/10/24 07:19
Physical Exam
-
Vital Signs:
Vital Signs
Temp Pulse Resp BP Pulse Ox
98.7 F 180 18 103/58 100
01/10/24 03:26 01/10/24 10:02 01/10/24 07:15 01/10/24 10:02 01/10/24 07:15
Cardiovascular:: Regular rate and rhythm
Respiratory:: Bilateral: CTA
Lung Excursion:: Normal
Abdomen:: Nontender and Soft
Bowel Sounds:: Normal
Extremity Edema:: None: Bilateral:
Carson Catheter: No
[2024-01-10] MEDS: LR 1000 IV (13:15)
[2024-01-10 16:23] VITALS: BP 105/46
[2024-01-10 19:08] VITALS: BP 121/63
[2024-01-10 23:16] VITALS: BP 127/69
[2024-01-11] VITALS (7 sets, daily range): BP systolic 122–144; BP diastolic 47–74
[2024-01-11] MEDS: LR 1000 IV (01:17)
[2024-01-11 06:34] LABS: Blood Urea Nitrogen 62 mg/dl (9-20); Calcium 8.6 mg/dl (8.4-10.2); Carbon Dioxide 25 mmol/L (22-30); Chloride 105 mmol/L (98-107); Estimated Creatinine Clearance 28 ml/min; Glucose 93 mg/dl (70-99); Sodium 140 mmol/L (135-145); eGFR 31.82
[2024-01-11] MEDS: PROTONIX 40 MG PO (07:41)
[2024-01-11] MEDS: LOW STRENGTH ASPIRIN 81 MG PO (07:41)
[2024-01-11] MEDS: LIPITOR 40 MG PO (07:41)
[2024-01-11] MEDS: LOPRESSOR 25 MG PO ×2 (07:51→20:56)
--- NOTE | 2024-01-11 11:42 | W.PN.HOSP.TC ---
Today's Communication/Plan
-
IVF
trend cr
nephro recs
Assessment / Plan
Assessment / Plan
pt is a 78 year old male
Acute kidney injury ( with metabolic acidosis) on CKD stage IIIa with baseline creatinine 1.4--likely from poor oral intake, dehydration, diarrhea all from Covid 19 infection--apprec renal--cont IVF with bicarb--numbers improving but not at
baseline--Carson catheter--apprec renal--renal US negative for hydro. Creatinine improving to 2.1. On IVF per nephro.
Severe hyperkalemia with no EKG changes treated with insulin and bicarbonate--Hold TALA inhibitor. Resolved.
Tachycardia likely sinus. Restart Lopressor at a lower dose and uptitrate as blood pressure can tolerate it to home dose
Acute COVID-19 infection--Stable respiratory status with almost no respiratory complaints--CXR neg--not hypoxic--Hold off for COVID therapies--Vaccinated-- isolation as per protocol.
Coronary artery disease status post CABG--RESTART aspirin, metoprolol, statin.
Essential Hypertension-- holding amlodipine and lisinopril.
GERD--cont PPO
code status -- FULL CODE
PT/OT Home health on discharge
d/w with daughter at bedside in details
Anticipated Discharge: Within 24 hours
Subjective/Interval History
-
Date of Service: January 11, 2024
remains weak
tolerating diet
Objective Data
-
Labs:
Laboratory Results
01/11/24
05:11
Sodium 140
Potassium 5.0
Chloride 105
Carbon Dioxide 25
BUN 62 H
Creatinine 2.1 H
Glucose 93
Calcium 8.6
Vital Signs:
Vital Signs
Temp Pulse Resp BP Pulse Ox
97.7 F 82 16 133/66 96
01/11/24 07:50 01/11/24 07:51 01/11/24 07:50 01/11/24 07:51 01/11/24 08:00
I&O
01/10/24 01/11/24 01/12/24
06:59 06:59 06:59
Intake Total 1180 / 1180 2400 / 2400
Output Total 650 / 650
Balance 530 / 530 2400 / 2400
Physical Exam
-
General: Well Developed, Well Nourished and No Apparent Distress
HEENT: Normocephalic and Atraumatic
Respiratory: Clear to Auscultation; Negative Wheezes or Rhonchi
Cardiac: Regular Rhythm and S1/S2; Negative Murmur
GI: Soft, Nontender, Nondistended and Normal Bowel Sounds
Musculoskeletal: No Clubbing, No Cyanosis and No Edema
Neuro: Awake and Alert
Psych: Calm
--- NOTE | 2024-01-11 12:38 | W.PN.NEPH.PH ---
Today's Communication / Plan
-
- off fluids
- encourage PO intake
Assessment/Plan
-
Assessment
Acute kidney injury
Azotemia
Metabolic acidosis
Diarrhea
Hypertension, relative hypotension
Coronary artery disease/CABG
Reflux
CKD 3A, 1.47
Plan
trial off fluids today
Follow urine output, not accurate currently
KUS with a L renal cyst but otherwise benign
Holding all outpatient medications
acidosis significantly improved with bicarb -- likely from intake and diarrhea
Mg low -- please replete
-
-
Date of Service: January 11, 2024
CC / HPI / ROS
-
Chief Complaint:
ADINA
History of Present Illness:
ADINA/creatinine down to 2.1 (bl 1.4)
Significant metabolic acidosis improved with bicarb gtt
Hyponatremia normalized to 140 with fluids
Urine output slowly improving
BP stable
COVID +
Review of Systems:
Appetite slowly improving
No further diarrhea
No chest pain shortness of breath
Labs
-
Labs:
WBC 4.1 10^3/uL (4.8-10.8) L 01/10/24 07:18
RBC 4.26 10^6/uL (4.70-6.10) L 01/10/24 07:18
Hgb 13.2 g/dL (13.0-18.0) 01/10/24 07:18
Hct 35.6 % (39.0-52.0) L 01/10/24 07:18
Plt Count 181 10^3/uL (130-400) 01/10/24 07:18
Sodium 140 mmol/L (135-145) 01/11/24 05:11
Potassium 5.0 mmol/L (3.5-5.1) 01/11/24 05:11
Chloride 105 mmol/L (98-107) 01/11/24 05:11
Carbon Dioxide 25 mmol/L (22-30) 01/11/24 05:11
BUN 62 mg/dl (9-20) H 01/11/24 05:11
Creatinine 2.1 mg/dL (0.7-1.3) H 01/11/24 05:11
eGFR 31.82 01/11/24 05:11
Glucose 93 mg/dl (70-99) 01/11/24 05:11
Calcium 8.6 mg/dl (8.4-10.2) 01/11/24 05:11
Phosphorus 6.2 mg/dl (2.5-4.5) H 01/09/24 05:07
Albumin 3.7 g/dl (3.5-5.0) 01/10/24 07:19
Physical Exam
-
Vital Signs:
Vital Signs
Temp Pulse Resp BP Pulse Ox
98.1 F 74 18 131/71 95
01/11/24 11:44 01/11/24 11:44 01/11/24 11:44 01/11/24 11:44 01/11/24 11:44
Cardiovascular:: Regular rate and rhythm
Respiratory:: Bilateral: Coarse
Lung Excursion:: Normal
Abdomen:: Nontender and Soft
Bowel Sounds:: Normal
Extremity Edema:: None: Bilateral:
Carson Catheter: No
--- NOTE | 2024-01-11 17:23 | CM ---
Patient with Covid. Left message for to complete assessment.
[2024-01-12] VITALS (7 sets, daily range): BP systolic 126–173; BP diastolic 67–88; PULSE 87; O2SAT 96; BMI 35.3
--- NOTE | 2024-01-12 04:19 | DOWNTIME ---
There was a [employer] Downtime on 01/12/2024 from 0100 to 01/12/2024 at 0255. Downtime documentation of patient's care, including medication administrations, has been reconciled in the electronic record per guidelines. Refer to the
patient's paper chart under the miscellaneous tab to see printed paper medication records and downtime forms.
[2024-01-12 07:13] LABS: Blood Urea Nitrogen 40 mg/dl (9-20); Carbon Dioxide 27 mmol/L (22-30); Chloride 104 mmol/L (98-107); Estimated Creatinine Clearance 33 ml/min; Glucose 95 mg/dl (70-99); Potassium 5.5 mmol/L (3.5-5.1); Sodium 137 mmol/L (135-145); eGFR 38.29
[2024-01-12] MEDS: LOW STRENGTH ASPIRIN 81 MG PO (07:51)
[2024-01-12] MEDS: LOPRESSOR 25 MG PO ×2 (07:51→21:06)
[2024-01-12] MEDS: LIPITOR 40 MG PO (07:51)
[2024-01-12] MEDS: PROTONIX 40 MG PO (07:51)
[2024-01-12] MEDS: VISBIOME 1 CAP PO (09:26)
--- NOTE | 2024-01-12 10:16 | W.PN.NEPH.PH ---
Today's Communication / Plan
-
check Mag
Assessment/Plan
-
Assessment
Acute kidney injury
Azotemia
Metabolic acidosis
Diarrhea
Hypertension, relative hypotension
Coronary artery disease/CABG
Reflux
CKD 3A, 1.47
Plan
follow BMP
check Mag
d/w family
-
-
Date of Service: January 12, 2024
CC / HPI / ROS
-
Chief Complaint:
ADINA
History of Present Illness:
ADINA/creatinine down to 1.8 (bl 1.4)
Significant metabolic acidosis improved
Urine output slowly improving
BP stable
COVID +
K up at 5.5
Review of Systems:
Appetite improving
No further diarrhea
No chest pain shortness of breath
Labs
-
Labs:
WBC 4.1 10^3/uL (4.8-10.8) L 01/10/24 07:18
RBC 4.26 10^6/uL (4.70-6.10) L 01/10/24 07:18
Hgb 13.2 g/dL (13.0-18.0) 01/10/24 07:18
Hct 35.6 % (39.0-52.0) L 01/10/24 07:18
Plt Count 181 10^3/uL (130-400) 01/10/24 07:18
Sodium 137 mmol/L (135-145) 01/12/24 05:42
Potassium 5.5 mmol/L (3.5-5.1) H 01/12/24 05:42
Chloride 104 mmol/L (98-107) 01/12/24 05:42
Carbon Dioxide 27 mmol/L (22-30) 01/12/24 05:42
BUN 40 mg/dl (9-20) H 01/12/24 05:42
Creatinine 1.8 mg/dL (0.7-1.3) H 01/12/24 05:42
eGFR 38.29 01/12/24 05:42
Glucose 95 mg/dl (70-99) 01/12/24 05:42
Calcium 9.0 mg/dl (8.4-10.2) 01/12/24 05:42
Phosphorus 6.2 mg/dl (2.5-4.5) H 01/09/24 05:07
Albumin 3.7 g/dl (3.5-5.0) 01/10/24 07:19
Physical Exam
-
Vital Signs:
Vital Signs
Temp Pulse Resp BP Pulse Ox
98.5 F 90 18 159/84 95
01/12/24 07:15 01/12/24 07:51 01/12/24 07:15 01/12/24 07:51 01/12/24 07:15
Cardiovascular:: Regular rate and rhythm
Respiratory:: Bilateral: Coarse
Lung Excursion:: Normal
Abdomen:: Nontender and Soft
Bowel Sounds:: Normal
Extremity Edema:: None: Bilateral:
[2024-01-12 11:49] LABS: Magnesium 1.4 mg/dl (1.6-2.3)
--- NOTE | 2024-01-12 12:55 | W.PN.HOSP.TC ---
Today's Communication/Plan
-
Replace magnesium and monitor electrolytes, possible discharge tomorrow
Assessment / Plan
Assessment / Plan
pt is a 78 year old male
Acute kidney injury ( with metabolic acidosis) on CKD stage IIIa with baseline creatinine 1.4--likely from poor oral intake, dehydration, diarrhea all from Covid 19 infection--apprec renal--cont IVF with bicarb--numbers improving but not at
baseline--Carson catheter--apprec renal--renal US negative for hydro. Creatinine improving to 2.1. On IVF per nephro.
Severe hyperkalemia with no EKG changes treated with insulin and bicarbonate--Hold TALA inhibitor. Resolved. Continue to monitor
Hypomagnesia: Replace and continue to monitor
Diarrhea: Possible secondary to COVID, added probiotic
Tachycardia likely sinus. Restart Lopressor at a lower dose and uptitrate as blood pressure can tolerate it to home dose
Acute COVID-19 infection--Stable respiratory status with almost no respiratory complaints--CXR neg--not hypoxic--Hold off for COVID therapies--Vaccinated-- isolation as per protocol.
Coronary artery disease status post CABG--RESTART aspirin, metoprolol, statin.
Essential Hypertension-- holding amlodipine and lisinopril.
GERD--cont PPO
code status -- FULL CODE
PT/OT Home health on discharge
d/w with daughter at bedside in details
Anticipated Discharge: Within 24 hours
Subjective/Interval History
-
Date of Service: January 12, 2024
Patient seen and examined at bedside, denies any chest pain or shortness of breath, no abdominal pain, no nausea, no vomiting, no diarrhea or constipation.
Family concerning of loose bowel, added probiotic.
Creatinine improved to 1.8, potassium 5.5.
Magnesium 1.4.
Objective Data
-
Labs:
Laboratory Results
01/12/24
05:42
Sodium 137
Potassium 5.5 H
Chloride 104
Carbon Dioxide 27
BUN 40 H
Creatinine 1.8 H
Glucose 95
Calcium 9.0
Vital Signs:
Vital Signs
Temp Pulse Resp BP Pulse Ox
98.3 F 76 18 133/71 94
01/12/24 11:10 01/12/24 11:10 01/12/24 11:10 01/12/24 11:10 01/12/24 11:10
I&O
01/11/24 01/12/24 01/13/24
06:59 06:59 06:59
Intake Total 2400 / 2400 1560 / 1560
Balance 2400 / 2400 1560 / 1560
Physical Exam
-
General: Well Developed and No Apparent Distress
HEENT: Normocephalic, Atraumatic and Moist Mucous Membranes
Respiratory: Clear to Auscultation
Cardiac: Regular Rhythm and S1/S2; Negative Murmur, Rub or Gallop
GI: Soft, Nontender, Nondistended and Normal Bowel Sounds; Negative Organomegaly
Rectal: Deferred by Provider
Musculoskeletal: No Clubbing, No Cyanosis and No Edema
Skin: Negative Rash
Neuro: Nonfocal/Grossly Intact
[2024-01-12] MEDS: MAGNESIUM SULFATE 102 GRAMS IV (13:56)
--- NOTE | 2024-01-12 15:31 | CM ---
Spoke with pt on the phone to complete initial assessment
Pt reports lives with his in a 2 story home. 4 steps to enter, 8 steps to bedroom
Independent, drives
DME - none
HH - no hx
SNF - no hx
Has ride at d/c
PCP - Dr Triston Kimball
Pharm - [facility]
PT recommending home PT vs no needs at d/c - pt unsure at this time
CM will follow for needs
Plan - anticipate home with HH vs no needs
[2024-01-13 03:04] VITALS: BP 128/58
[2024-01-13 06:00] VITALS: BMI 34.9
[2024-01-13 06:10] VITALS: BP 133/81
[2024-01-13 07:10] VITALS: BP 133/81
[2024-01-13 07:40] LABS: Blood Urea Nitrogen 29 mg/dl (9-20); Calcium 9.2 mg/dl (8.4-10.2); Carbon Dioxide 19 mmol/L (22-30); Chloride 105 mmol/L (98-107); Estimated Creatinine Clearance 35 ml/min; Glucose 99 mg/dl (70-99); Potassium 5.6 mmol/L (3.5-5.1); Sodium 137 mmol/L (135-145); eGFR 41.01
[2024-01-13 07:50] LABS: Magnesium 1.6 mg/dl (1.6-2.3)
[2024-01-13] MEDS: PROTONIX 40 MG PO (08:11)
[2024-01-13] MEDS: VISBIOME 1 CAP PO (08:11)
[2024-01-13] MEDS: LOPRESSOR 25 MG PO (08:11)
[2024-01-13] MEDS: LOW STRENGTH ASPIRIN 81 MG PO (08:11)
[2024-01-13] MEDS: LIPITOR 40 MG PO (08:12)
--- NOTE | 2024-01-13 10:23 | CM ---
CM following re:discharge planning.
Reviewed pt's chart, met with pt.
Discharge order noted. Both pt and his spouse are aware, expressed their agreement with discharge. IMM reviewed, placed on chart, pt has a copy.
PT and OT evaluations noted - home PT recommended. both pt and his spouse are aware, expressed their agreement. A list of VN vendors provided. [facility] is chosen. A referral to [facility] made.
Please fax discharge instructions to [facility] at [phone]
D/C plan: home with [facility] and family support. Spouse to transport.
No other discharge needs identified.
--- NOTE | 2024-01-13 10:58 | W.PN.HOSP.TC ---
Today's Communication/Plan
-
Discharge home today
Assessment / Plan
Assessment / Plan
pt is a 78 year old male
Acute kidney injury ( with metabolic acidosis) on CKD stage IIIa with baseline creatinine 1.4--likely from poor oral intake, dehydration, diarrhea all from Covid 19 infection--apprec renal--cont IVF with bicarb--numbers improving but not at
baseline--Carson catheter--apprec renal--renal US negative for hydro. Creatinine improving to 2.1. On IVF per nephro.
Severe hyperkalemia with no EKG changes treated with insulin and bicarbonate--Hold TALA inhibitor. Resolved. Continue to monitor
Hypomagnesia: Replace and continue to monitor
Diarrhea: Possible secondary to COVID, added probiotic
01/12
Diarrhea improved
Tachycardia likely sinus. Restart Lopressor at a lower dose and uptitrate as blood pressure can tolerate it to home dose
Acute COVID-19 infection--Stable respiratory status with almost no respiratory complaints--CXR neg--not hypoxic--Hold off for COVID therapies--Vaccinated-- isolation as per protocol.
Coronary artery disease status post CABG--RESTART aspirin, metoprolol, statin.
Essential Hypertension-- holding amlodipine and lisinopril.
GERD--cont PPO
code status -- FULL CODE
PT/OT Home health on discharge
d/w with at bedside in details
Discharge home today
Anticipated Discharge: Today
Subjective/Interval History
-
Date of Service: January 13, 2024
Patient seen and examined at bedside, denies any chest pain or shortness of breath, no abdominal pain, no nausea, no vomiting, no diarrhea or constipation.
Diarrhea resolved
Kidney function improved, will be discharged home.
Objective Data
-
Labs:
Laboratory Results
01/13/24
06:04
Sodium 137
Potassium 5.6 H
Chloride 105
Carbon Dioxide 19 L
BUN 29 H
Creatinine 1.7 H
Glucose 99
Calcium 9.2
Vital Signs:
Vital Signs
Temp Pulse Resp BP Pulse Ox
98.3 F 91 18 133/81 97
01/13/24 07:10 01/13/24 08:11 01/13/24 07:10 01/13/24 08:11 01/13/24 07:10
I&O
01/12/24 01/13/24 01/14/24
06:59 06:59 06:59
Intake Total 1560 / 1560 820 / 820
Output Total 900 / 900
Balance 1560 / 1560 -80 / -80
Physical Exam
-
General: Well Developed and No Apparent Distress
HEENT: Normocephalic, Atraumatic and Moist Mucous Membranes
Respiratory: Clear to Auscultation
Cardiac: Regular Rhythm and S1/S2; Negative Murmur, Rub or Gallop
GI: Soft, Nontender, Nondistended and Normal Bowel Sounds; Negative Organomegaly
Rectal: Deferred by Provider
Musculoskeletal: No Clubbing, No Cyanosis and No Edema
Skin: Negative Rash
Neuro: Nonfocal/Grossly Intact
--- NOTE | 2024-01-13 11:03 | W.DCSUMMARY ---
Discharge Summary
Discharge Data
Date of Admission: 01/08/24
Date of Discharge: 01/13/24
-
Pending Results: No
Hospital Course
pt is a 78 year old male who admitted with renal failure
Acute kidney injury ( with metabolic acidosis) on CKD stage IIIa with baseline creatinine 1.4--likely from poor oral intake, dehydration, diarrhea all from Covid 19 infection--apprec renal--cont IVF with bicarb--numbers improving but not at
baseline--Carson catheter--apprec renal--renal US negative for hydro. Creatinine improving to 2.1. On IVF per nephro.
Severe hyperkalemia with no EKG changes treated with insulin and bicarbonate--Hold TALA inhibitor. Resolved. Continue to monitor
Hypomagnesia: Replace and continue to monitor
Diarrhea: Possible secondary to COVID, added probiotic
01/12
Diarrhea improved
Tachycardia likely sinus. Restart Lopressor at a lower dose and uptitrate as blood pressure can tolerate it to home dose
Acute COVID-19 infection--Stable respiratory status with almost no respiratory complaints--CXR neg--not hypoxic--Hold off for COVID therapies--Vaccinated-- isolation as per protocol.
Coronary artery disease status post CABG--RESTART aspirin, metoprolol, statin.
Essential Hypertension-- holding amlodipine and lisinopril.
GERD--cont PPO
code status -- FULL CODE
PT/OT Home health on discharge
d/w with at bedside in details
Discharge home today
Discharge Plan
-
Patient Disposition: Home with Home Care
Discharge Diagnosis/Procedures: Acute Renal failure
COVID infection
Hyperkalemia
Diet: 2 Gram Sodium
Additional Diets: Low potassium diet
Activity: No restrictions
Driving Restrictions: As prior to admission
Bathing Restrictions: None
Blood Work: Need to repeat BMP after 1 week
Other Services: PT and OT
Referrals:
Virgil Villalobos MD [Active] - in two weeks
Triston Kimball DO [Family Provider] -
Prescriptions:
New
Probiotic 15 billion cell capsule, sprinkle
1 cap PO DAILY Qty: 30 0RF
Continued
atorvastatin 40 mg Tablet
40 mg PO DAILY
metoprolol succinate 50 mg Tablet Extended Release 24 Hr
50 mg PO BID
amlodipine 5 mg Tablet
5 mg PO DAILY
aspirin 81 mg Tablet,Chewable
81 mg PO DAILY
omeprazole 20 mg Tablet,Delayed Release (Dr/Ec)
20 mg PO DAILY
Discontinued
lisinopril 10 mg Tablet
10 mg PO DAILY
Discharge Orders:
Discharge Patient (As Directed); Ordered 01/13/24
Ordered By: Corbin Robledo
Discharge Date and Time
Print Language: YAKUT
--- NOTE | 2024-01-13 11:41 | W.PN.NEPH.PH ---
Today's Communication / Plan
-
lokelma
Assessment/Plan
-
Assessment
Acute kidney injury
Azotemia
Metabolic acidosis
Diarrhea
Hypertension, relative hypotension
Coronary artery disease/CABG
Reflux
CKD 3A, 1.47
Plan
follow BMP wednesday
lokelma today
will arrange OP f/u
d/w family
-
-
Date of Service: January 13, 2024
CC / HPI / ROS
-
Chief Complaint:
ADINA
History of Present Illness:
ADINA/creatinine down to 1.7 (bl 1.4)
Significant metabolic acidosis improved
BP stable
COVID +
K up at 5.6
Review of Systems:
No further diarrhea
No chest pain shortness of breath
Labs
-
Labs:
WBC 4.1 10^3/uL (4.8-10.8) L 01/10/24 07:18
RBC 4.26 10^6/uL (4.70-6.10) L 01/10/24 07:18
Hgb 13.2 g/dL (13.0-18.0) 01/10/24 07:18
Hct 35.6 % (39.0-52.0) L 01/10/24 07:18
Plt Count 181 10^3/uL (130-400) 01/10/24 07:18
Sodium 137 mmol/L (135-145) 01/13/24 06:04
Potassium 5.6 mmol/L (3.5-5.1) H 01/13/24 06:04
Chloride 105 mmol/L (98-107) 01/13/24 06:04
Carbon Dioxide 19 mmol/L (22-30) L 01/13/24 06:04
BUN 29 mg/dl (9-20) H 01/13/24 06:04
Creatinine 1.7 mg/dL (0.7-1.3) H 01/13/24 06:04
eGFR 41.01 01/13/24 06:04
Glucose 99 mg/dl (70-99) 01/13/24 06:04
Calcium 9.2 mg/dl (8.4-10.2) 01/13/24 06:04
Phosphorus 6.2 mg/dl (2.5-4.5) H 01/09/24 05:07
Albumin 3.7 g/dl (3.5-5.0) 01/10/24 07:19
Physical Exam
-
Vital Signs:
Vital Signs
Temp Pulse Resp BP Pulse Ox
98.3 F 91 18 133/81 97
01/13/24 07:10 01/13/24 08:11 01/13/24 07:10 01/13/24 08:11 01/13/24 07:10
Cardiovascular:: Regular rate and rhythm
Respiratory:: Bilateral: Coarse
Lung Excursion:: Normal
Abdomen:: Nontender and Soft
Bowel Sounds:: Normal
Extremity Edema:: None: Bilateral:
[2024-01-13] MEDS: LOKELMA 10 GRAM PO (11:53)
[2024-01-13 12:00] VITALS: BP 144/73
== END 2024-01-13 12:52 | disposition home health service (06) | DRG 682 ==
LOC: 2 NORTH 21:22
PROVIDERS: Hospitalist; Nurse Practitioner Family; Physician Assistant; ADMITTING PHYSICIAN Internal Medicine; ATTENDING PHYSICIAN General Practice; CONSULT PHYSICIAN Specialist; EMERGENCY PHYSICIAN Student in an Organized Health Care Education/Training Program; FAMILY PHYSICIAN Internal Medicine; OTHER PHYSICIAN Internal Medicine
DX: N17.9 Acute kidney failure, unspecified (principal); U07.1 COVID-19; E87.20 Acidosis, unspecified; Z87.891 Personal history of nicotine dependence; E87.5 Hyperkalemia; N18.31 Chronic kidney disease, stage 3a; I10 Essential (primary) hypertension; K21.9 Gastro-esophageal reflux disease without esophagitis; E83.42 Hypomagnesemia; I25.10 Atherosclerotic heart disease of native coronary artery without angina pectoris
CPT/HCPCS: 51798; 71046; 76775; 80048; 80053; 81003; 81015; 81099; 82550; 82570; 82805; 82962; 83605; 83735; 84100; 84300; 84484; 85025; 85027; 85610; 85652; 85730; 86140; 87811; 93005; 96360; 96361; 97116; 97162; 97166; 97530; 97535; 99285

== ENCOUNTER → 2024-10-30 09:01 | Outpatient (REF) | payer OTHER, SELFPAY | LOC: RCS 09:01 | PROVIDERS: ATTENDING PHYSICIAN Internal Medicine Interventional Cardiology; FAMILY PHYSICIAN Internal Medicine | DX: I25.10 Atherosclerotic heart disease of native coronary artery without angina pectoris (principal) | CPT/HCPCS: 93306 ==